=== PATIENT | female | born 1945 | race Caucasian/White ===

== ENCOUNTER 2017-03-22 08:25 | Day surgery (SDC) | payer MEDICARE ==
[2017-03-22] VITALS (9 sets, daily range): BP systolic 105–131; BP diastolic 48–78
[~2017-03-22 08:25] MED LIST: ALBU18HF2 INH; BUDE10.2 INH; CARV-50 PO; COU1T PO; FAMO20TA8 PO; FURO-150 PO; HYDR-3972 PO; MAGN400T6 PO; METF500T PO; POTA10CA44 PO; SPIR25TA3 PO
[2017-03-22] MEDS ORDERED: normal saline 1000ml 1,000 ML IV SCH (09:00)
[2017-03-22] MEDS ORDERED: albumin (human) 25% 100ml IV 100 ML IV ONE (09:00)
[2017-03-22] MEDS ORDERED: COU3T PO (09:20)
[2017-03-22 09:32] LABS: INR 1.6 INR; PROTHROMBIN TIME 16.7 SECONDS (9.0-12.0)
[2017-03-22] MEDS ORDERED: LIDOcaine 1% 30ml vial SQ STA ×2 (09:44→10:34)
== END 2017-03-22 11:40 | disposition home or self-care (01) ==
LOC: SSTAY O 08:25
PROVIDERS: ATTEND Radiology Diagnostic Radiology
DX: J90 Pleural effusion, not elsewhere classified (principal); R18.8 Other ascites; K72.10 Chronic hepatic failure without coma; E11.9 Type 2 diabetes mellitus without complications; I48.91 Unspecified atrial fibrillation; J44.9 Chronic obstructive pulmonary disease, unspecified; I11.0 Hypertensive heart disease with heart failure; I50.31 Acute diastolic (congestive) heart failure; Z87.891 Personal history of nicotine dependence; Z79.01 Long term (current) use of anticoagulants; Z88.0 Allergy status to penicillin; Z88.2 Allergy status to sulfonamides; Z90.49 Acquired absence of other specified parts of digestive tract; Z90.710 Acquired absence of both cervix and uterus; Z79.84 Long term (current) use of oral hypoglycemic drugs; Z85.41 Personal history of malignant neoplasm of cervix uteri
CPT/HCPCS: 32555; 36415; 49083; 71045; 85610; A6257; J3490; 88108; 88305; J7030

== ENCOUNTER 2017-04-19 08:48 | Day surgery (SDC) | payer MEDICARE ==
[2017-04-19] VITALS (9 sets, daily range): BP systolic 99–117; BP diastolic 52–79
[~2017-04-19 08:48] MED LIST changes: -COU1T PO; +COU3T PO; -HYDR-3972 PO; +HYDR-565 PO
[2017-04-19] MEDS ORDERED: normal saline 1000ml 1,000 ML IV PRN (09:10)
[2017-04-19] MEDS ORDERED: albumin (human) 25% 100 ML IV solution IV PRN (09:10)
== END 2017-04-19 11:35 | disposition home or self-care (01) ==
LOC: SSTAY O 08:48
PROVIDERS: ATTEND Radiology Diagnostic Radiology
DX: J90 Pleural effusion, not elsewhere classified (principal); R18.8 Other ascites; I48.91 Unspecified atrial fibrillation; I10 Essential (primary) hypertension; J44.9 Chronic obstructive pulmonary disease, unspecified; K74.60 Unspecified cirrhosis of liver; E11.9 Type 2 diabetes mellitus without complications; M19.90 Unspecified osteoarthritis, unspecified site; Z90.49 Acquired absence of other specified parts of digestive tract; Z90.710 Acquired absence of both cervix and uterus; Z88.0 Allergy status to penicillin; Z88.1 Allergy status to other antibiotic agents; Z79.84 Long term (current) use of oral hypoglycemic drugs; Z79.01 Long term (current) use of anticoagulants; Z87.891 Personal history of nicotine dependence; Z87.11 Personal history of peptic ulcer disease; Z85.41 Personal history of malignant neoplasm of cervix uteri; Z79.899 Other long term (current) drug therapy
CPT/HCPCS: 32555; 49083; 71045; A6257; J7030

== ENCOUNTER 2017-05-24 08:07 | Day surgery (SDC) | payer MEDICARE ==
[2017-05-24] MEDS ORDERED: LIDOcaine 1% 30ml preserv. free vial SQ STA (08:25)
[2017-05-24 08:33] VITALS: BP 111/76
[2017-05-24] MEDS ORDERED: normal saline 1000ml 1,000 ML IV PRN (08:55)
== END 2017-05-24 09:15 | disposition home or self-care (01) ==
LOC: SSTAY O 08:07
PROVIDERS: ATTEND Radiology Diagnostic Radiology
DX: J90 Pleural effusion, not elsewhere classified (principal); E11.9 Type 2 diabetes mellitus without complications; I10 Essential (primary) hypertension; I48.91 Unspecified atrial fibrillation; J44.9 Chronic obstructive pulmonary disease, unspecified; M19.90 Unspecified osteoarthritis, unspecified site; Z87.11 Personal history of peptic ulcer disease; Z79.01 Long term (current) use of anticoagulants; Z88.0 Allergy status to penicillin; Z88.2 Allergy status to sulfonamides; Z90.49 Acquired absence of other specified parts of digestive tract; Z90.710 Acquired absence of both cervix and uterus; Z79.891 Long term (current) use of opiate analgesic; Z88.8 Allergy status to other drugs, medicaments and biological substances; Z87.891 Personal history of nicotine dependence; Z85.41 Personal history of malignant neoplasm of cervix uteri; Z98.890 Other specified postprocedural states; Z79.899 Other long term (current) drug therapy
CPT/HCPCS: 32555; 71045; 76705; A6257; J3490; J7030

== ENCOUNTER 2017-06-05 08:24 | Day surgery (SDC) | payer MEDICARE ==
[~2017-06-05] VITALS: Ht 162.6 cm; Wt 55.4 kg
[2017-06-05] VITALS (12 sets, daily range): BP systolic 105–126; BP diastolic 64–81
[~2017-06-05 08:24] MED LIST changes: -ALBU18HF2 INH; -COU3T PO; -HYDR-565 PO; -METF500T PO
[2017-06-05] MEDS ORDERED: albumin (human) 25% 100ml IV 100 ML IV PRN (08:50)
[2017-06-05] MEDS ORDERED: LIDOcaine 1% 30ml preserv. free vial SQ STA (08:55)
== END 2017-06-05 11:00 | disposition home or self-care (01) ==
LOC: SSTAY O 08:24
PROVIDERS: ATTEND Radiology Vascular & Interventional Radiology
DX: J90 Pleural effusion, not elsewhere classified (principal); R18.8 Other ascites; K74.60 Unspecified cirrhosis of liver; E11.9 Type 2 diabetes mellitus without complications; I10 Essential (primary) hypertension; J44.9 Chronic obstructive pulmonary disease, unspecified; I48.91 Unspecified atrial fibrillation; Z88.0 Allergy status to penicillin; Z88.2 Allergy status to sulfonamides; Z90.49 Acquired absence of other specified parts of digestive tract; Z90.710 Acquired absence of both cervix and uterus; Z79.01 Long term (current) use of anticoagulants
CPT/HCPCS: 32555; 49083; 71045; A6257; J3490

== ENCOUNTER 2018-05-09 07:37 | Day surgery (SDC) | payer MEDICARE ==
[~2018-05-09 07:37] MED LIST changes: +LIDOcaine 1%/PF 5ML 10 MG/ML VIAL ONE; -SPIR25TA3 PO; +SPIR25TA5 PO
[2018-05-09] MEDS ORDERED: normal saline 1000ml 1,000 ML IV SCH (08:20)
[2018-05-09] MEDS ORDERED: ONDA4TAB12 PO (08:26)
[2018-05-09] MEDS ORDERED: HYDR-3686 PO (08:26)
[2018-05-09] MEDS ORDERED: PER10325T PO (08:26)
[2018-05-09 09:04] VITALS: BP 96/46
--- NOTE | 2018-05-09 10:20 | NUR ---
DR SINGH REMOVED ASPIRA CATHETER AT BEDSIDE. USING STERILE TECHNIQUE DR SINGH INJECTED 10ML OF 1% LIDOCAINE AND REMOVED CATHETER. PT O2 SATS REMAINED ABOVE 97% DURING AND AFTER PROCEDURE. I WAS INSTRUCTED TO MONITOR FOR 20 MINUTES POST CATH REMOVAL. SATS REMAINED ABOVE 97%. PT WAS DISCHARGED HOME WITH HER FRIEND. PT HAD ALL BELONGINGS. Addendum: 05/09/18 at 1640 by Noemi Vizcarra RN XEROFORM AND STERILE 2X2S PLACED AND COVERED BY A TAGADERM. PT INSTRUCTED TO LEAVE ON FOR 2 DAYS AND KEEP A BANDAID ON AFTER UNTIL IS COMPLETELY HEALED.
== END 2018-05-09 10:25 | disposition home or self-care (01) ==
LOC: SSTAY O 07:37
PROVIDERS: ATTEND Radiology Diagnostic Radiology
DX: T85.9XXA Unspecified complication of internal prosthetic device, implant and graft, initial encounter (principal); I48.91 Unspecified atrial fibrillation; I10 Essential (primary) hypertension; J44.9 Chronic obstructive pulmonary disease, unspecified; E11.9 Type 2 diabetes mellitus without complications; Y83.8 Other surgical procedures as the cause of abnormal reaction of the patient, or of later complication, without mention of misadventure at the time of the procedure; Z90.49 Acquired absence of other specified parts of digestive tract; Z90.710 Acquired absence of both cervix and uterus; Z88.0 Allergy status to penicillin; Z79.899 Other long term (current) drug therapy; Z88.2 Allergy status to sulfonamides
CPT/HCPCS: 32552; J2001; J7030

== ENCOUNTER 2018-09-19 13:45 | Emergency (ER) | payer MEDICARE ==
[~2018-09-19] VITALS: Ht 162.6 cm; Wt 47.7 kg
[~2018-09-19 13:45] MED LIST changes: -BUDE10.2 INH; +HYDR-3686 PO; -LIDOcaine 1%/PF 5ML 10 MG/ML VIAL ONE; +MAGN400T28 PO; -MAGN400T6 PO; +ONDA4TAB12 PO; +PER10325T PO
[2018-09-19] MEDS ORDERED: SYN0.088T PO (14:05)
[2018-09-19] MEDS ORDERED: POTA10TA10 PO (14:08)
[2018-09-19] MEDS ORDERED: CARV-50 PO (14:08)
[2018-09-19 15:11] LABS: BASOPHILS # (AUTO) 0.1 X10'3 (0-0.2); BASOPHILS % (AUTO) 0.7 % (0-1); EOSINOPHILS # (AUTO) 0.3 X10'3 (0-0.9); EOSINOPHILS % (AUTO) 2.6 % (0-6); HEMATOCRIT 40.2 % (35.0-45.0); HEMOGLOBIN 13.2 g/dl (12.0-16.0); LYMPHOCYTES # (AUTO) 0.7 X10'3 (1.1-4.8); LYMPHOCYTES % (AUTO) 6.5 % (21-51); MEAN CORPUSCULAR HGB CONC 32.9 g/dL (33.0-36.5); MEAN CORPUSCULAR VOLUME 84.9 FL (78-98); MEAN PLATELET VOLUME 6.8 FL (7.4-10.4); MONOCYTES # (AUTO) 1.2 X10'3 (0-0.9); MONOCYTES % (AUTO) 11.7 % (2-12); NEUTROPHILS # (AUTO) 7.9 X10'3 (1.8-7.7); NEUTROPHILS % (AUTO) 78.5 % (42-75); PLATELET COUNT 515 X10'3 (140-440); RED BLOOD COUNT 4.74 X10'6 (4.20-5.60); RED CELL DISTRIBUTION WIDTH 18.2 % (11.5-14.5); WHITE BLOOD COUNT 10.1 X10'3 (4.5-11.0)
[2018-09-19 15:22] LABS: PARTIAL THROMBOPLASTIN TIME 33 SECONDS (22-32)
[2018-09-19 15:23] LABS: ALANINE AMINOTRANSFERASE 9 U/L (12-78); ALBUMIN/GLOBULIN RATIO 0.8 (1.1-1.5); ALKALINE PHOSPHATASE 108 IU/L (46-116); ANION GAP 8 (8-16); ASPARTATE AMINO TRANSFERASE 17 U/L (10-37); BILIRUBIN,TOTAL 0.4 MG/DL (0.1-1.0); BLOOD UREA NITROGEN 24 MG/DL (7-18); BUN/CREATININE RATIO 12.6 (6.6-38.0); CHLORIDE 95 MMOL/L (99-107); GLUCOSE 108 MG/DL (70-104); LIPASE 89 U/L (73-393); POTASSIUM 4.8 MMOL/L (3.5-5.1); SODIUM 131 MMOL/L (135-145); TOTAL CARBON DIOXIDE 27.6 MMOL/L (24-32); eGFR 26 ML/MIN
[2018-09-19] MEDS ORDERED: normal saline 1000ML IV soln IVB ONE (15:30)
[2018-09-19 16:06] VITALS: BP 115/44
== END 2018-09-19 16:09 | disposition home or self-care (01) ==
LOC: ER 13:45
DX: R18.8 Other ascites (principal); E86.0 Dehydration; R16.0 Hepatomegaly, not elsewhere classified; I48.91 Unspecified atrial fibrillation; I10 Essential (primary) hypertension; J44.9 Chronic obstructive pulmonary disease, unspecified; E11.9 Type 2 diabetes mellitus without complications; Z90.49 Acquired absence of other specified parts of digestive tract; Z90.710 Acquired absence of both cervix and uterus; Z88.0 Allergy status to penicillin; Z88.2 Allergy status to sulfonamides; Z79.899 Other long term (current) drug therapy
CPT/HCPCS: 36415; 80053; 83690; 85025; 85610; 85730; 96360; 99284; J7030

== ENCOUNTER 2018-09-25 08:40 | Day surgery (SDC) | payer MEDICARE ==
[~2018-09-25] VITALS: Ht 157.5 cm; Wt 51.1 kg
[~2018-09-25 08:40] MED LIST changes: -POTA10CA44 PO; +POTA10TA10 PO; +SYN0.088T PO
[2018-09-25 09:06] VITALS: BP 99/72
[2018-09-25] MEDS ORDERED: albumin 25% 100mL bottle x 1 IV PRN (09:10)
[2018-09-25] MEDS ORDERED: normal saline 1000ml 1,000 ML IV PRN (09:10)
[2018-09-25 09:40] VITALS: BP 142/43
[2018-09-25 09:50] VITALS: BP 111/73
[2018-09-25 10:05] VITALS: BP 108/59
== END 2018-09-25 10:30 | disposition home or self-care (01) ==
LOC: SSTAY O 08:40
PROVIDERS: ATTEND Radiology Diagnostic Radiology
DX: J90 Pleural effusion, not elsewhere classified (principal); R18.8 Other ascites; I50.9 Heart failure, unspecified; Z88.0 Allergy status to penicillin; Z88.2 Allergy status to sulfonamides; Z88.8 Allergy status to other drugs, medicaments and biological substances
CPT/HCPCS: 32555; 71045; 76705; J7030

== ENCOUNTER 2018-10-02 10:02 | Emergency (ER) | payer MEDICARE ==
[~2018-10-02] VITALS: Ht 162.6 cm; Wt 45.5 kg
[2018-10-02 10:32] VITALS: BP 116/61
[2018-10-02 11:26] LABS: BASOPHILS # (AUTO) 0.1 X10'3 (0-0.2); BASOPHILS % (AUTO) 0.9 % (0-1); EOSINOPHILS # (AUTO) 0.2 X10'3 (0-0.9); EOSINOPHILS % (AUTO) 2.3 % (0-6); HEMATOCRIT 40.1 % (35.0-45.0); HEMOGLOBIN 13.7 g/dl (12.0-16.0); LYMPHOCYTES # (AUTO) 0.5 X10'3 (1.1-4.8); LYMPHOCYTES % (AUTO) 5.5 % (21-51); MEAN CORPUSCULAR HEMOGLOBIN 28.6 PG (27.0-31.0); MEAN CORPUSCULAR VOLUME 83.9 FL (78-98); MEAN PLATELET VOLUME 6.8 FL (7.4-10.4); MONOCYTES % (AUTO) 11.9 % (2-12); NEUTROPHILS # (AUTO) 6.8 X10'3 (1.8-7.7); NEUTROPHILS % (AUTO) 79.4 % (42-75); PLATELET COUNT 466 X10'3 (140-440); RED BLOOD COUNT 4.78 X10'6 (4.20-5.60); RED CELL DISTRIBUTION WIDTH 17.5 % (11.5-14.5); WHITE BLOOD COUNT 8.6 X10'3 (4.5-11.0)
[2018-10-02 11:36] LABS: ALANINE AMINOTRANSFERASE 7 U/L (12-78); ALBUMIN 2.6 G/DL (3.4-5.0); ALBUMIN/GLOBULIN RATIO 0.7 (1.1-1.5); ALKALINE PHOSPHATASE 76 IU/L (46-116); ANION GAP 9 (8-16); ASPARTATE AMINO TRANSFERASE 21 U/L (10-37); BILIRUBIN,TOTAL 0.6 MG/DL (0.1-1.0); BLOOD UREA NITROGEN 25 MG/DL (7-18); BUN/CREATININE RATIO 12.8 (6.6-38.0); CHLORIDE 98 MMOL/L (99-107); CREATININE 1.96 MG/DL (0.40-0.90); GLUCOSE 94 MG/DL (70-104); LIPASE 98 U/L (73-393); POTASSIUM 4.5 MMOL/L (3.5-5.1); SODIUM 133 MMOL/L (135-145); TOTAL CARBON DIOXIDE 26.2 MMOL/L (24-32); TOTAL PROTEIN 6.3 G/DL (6.4-8.2); eGFR 25 ML/MIN
[2018-10-02 11:44] LABS: COLOR,URINE YELLOW (Yellow); GLUCOSE, URINE NEGATIVE (Neg); KETONES,URINE NEGATIVE (Neg); LEUKOCYTE ESTERASE ,URINE TRACE (Neg); NITRITES, URINE NEGATIVE (Neg); OCCULT BLOOD,URINE NEGATIVE (Neg); PH,URINE 5.5 (4.8-8.0); PROTEIN,URINE NEGATIVE (Neg); UROBILINOGEN,URINE 0.2 E.U/dL (0.2-1.0)
[2018-10-02] MEDS ORDERED: ondansetron 4mg rapidly disintigrating tab PO ONE (11:45)
[2018-10-02] MEDS ORDERED: oxyCODONE SR 10mg (sust. release) tab PO ONE (11:45)
[2018-10-02 11:48] LABS: UA COLLECTION TYPE CLN CATCH MIDSTREAM
[2018-10-02 11:49] LABS: CLARITY,URINE SLIGHTLY CLOUDY (Clear)
[2018-10-02] MEDS ORDERED: oxyCODONE IR 5mg (immed. release) tablet PO ONE (11:50)
[2018-10-02 12:03] LABS: BACTERIA,URINE FEW /HPF (Neg); RBC,URINE 0-2 /HPF (0-2); SQUAMOUS EPITHELIAL CELL,UR FEW /LPF (FEW); WBC,URINE 0-4 /HPF (0-4)
[2018-10-02 12:17] LABS: TROPONIN I < 0.04 NG/ML (0.0-0.05)
[2018-10-02] MEDS ORDERED: HYDR-3965 PO (14:33)
== END 2018-10-02 15:05 | disposition home or self-care (01) ==
LOC: ER 10:03
DX: R18.8 Other ascites (principal); I48.91 Unspecified atrial fibrillation; I10 Essential (primary) hypertension; J44.9 Chronic obstructive pulmonary disease, unspecified; E11.9 Type 2 diabetes mellitus without complications; F17.200 Nicotine dependence, unspecified, uncomplicated; Z90.49 Acquired absence of other specified parts of digestive tract; Z90.710 Acquired absence of both cervix and uterus; Z88.0 Allergy status to penicillin; Z88.5 Allergy status to narcotic agent; Z79.899 Other long term (current) drug therapy
CPT/HCPCS: 36415; 71045; 74176; 80053; 81001; 83690; 84484; 85025; 85610; 87088; 93005; 99284; J2405

== ENCOUNTER 2018-10-03 09:09 | Day surgery (SDC) | payer MEDICARE ==
[2018-10-03] VITALS (7 sets, daily range): BP systolic 94–120; BP diastolic 44–69
[~2018-10-03 09:09] MED LIST changes: +HYDR-3965 PO
[2018-10-03] MEDS ORDERED: normal saline 1000ml 1,000 ML IV PRN (09:35)
[2018-10-03] MEDS ORDERED: albumin 25% 100mL bottle x 1 IV PRN (09:35)
== END 2018-10-03 11:30 | disposition home or self-care (01) ==
LOC: SSTAY O 09:09
PROVIDERS: ATTEND Radiology Vascular & Interventional Radiology
DX: R18.8 Other ascites (principal); J90 Pleural effusion, not elsewhere classified; I11.0 Hypertensive heart disease with heart failure; I50.9 Heart failure, unspecified; J44.9 Chronic obstructive pulmonary disease, unspecified; I48.91 Unspecified atrial fibrillation; E11.9 Type 2 diabetes mellitus without complications; Z79.899 Other long term (current) drug therapy
CPT/HCPCS: 32555; 49083; 71045; C1729; J7030; 88108; 88305

== ENCOUNTER 2018-10-21 16:07 | Inpatient (IN) | payer MEDICARE ==
[~2018-10-21] VITALS: Ht 162.6 cm; Wt 45.0 kg
[2018-10-21 16:40] LABS: BASOPHILS # (AUTO) 0.1 X10'3 (0-0.2); BASOPHILS % (AUTO) 1.2 % (0-1); EOSINOPHILS # (AUTO) 0.2 X10'3 (0-0.9); EOSINOPHILS % (AUTO) 1.6 % (0-6); HEMATOCRIT 43.6 % (35.0-45.0); HEMOGLOBIN 14.1 g/dl (12.0-16.0); LYMPHOCYTES # (AUTO) 0.5 X10'3 (1.1-4.8); LYMPHOCYTES % (AUTO) 5.8 % (21-51); MEAN CORPUSCULAR HEMOGLOBIN 27.9 PG (27.0-31.0); MEAN CORPUSCULAR HGB CONC 32.3 g/dL (33.0-36.5); MEAN CORPUSCULAR VOLUME 86.2 FL (78-98); MEAN PLATELET VOLUME 6.7 FL (7.4-10.4); MONOCYTES % (AUTO) 11.2 % (2-12); NEUTROPHILS # (AUTO) 7.4 X10'3 (1.8-7.7); NEUTROPHILS % (AUTO) 80.2 % (42-75); PLATELET COUNT 474 X10'3 (140-440); RED BLOOD COUNT 5.06 X10'6 (4.20-5.60); RED CELL DISTRIBUTION WIDTH 16.9 % (11.5-14.5); WHITE BLOOD COUNT 9.3 X10'3 (4.5-11.0)
[2018-10-21 16:53] LABS: PARTIAL THROMBOPLASTIN TIME 27 SECONDS (22-32)
[2018-10-21] MEDS ORDERED: morphine 4 MG/ML inj SYRINge IV ONE (16:55)
[2018-10-21] MEDS ORDERED: furosemide 10 MG/1 ML 10ml inj IV ONE (16:55)
[2018-10-21 17:01] LABS: ALANINE AMINOTRANSFERASE 7 U/L (12-78); ALBUMIN 2.7 G/DL (3.4-5.0); ALBUMIN/GLOBULIN RATIO 0.6 (1.1-1.5); ALKALINE PHOSPHATASE 76 IU/L (46-116); ANION GAP 9 (8-16); ASPARTATE AMINO TRANSFERASE 27 U/L (10-37); BILIRUBIN,TOTAL 0.5 MG/DL (0.1-1.0); BLOOD UREA NITROGEN 70 MG/DL (7-18); BUN/CREATININE RATIO 22.9 (6.6-38.0); CALCIUM 11.7 MG/DL (8.5-10.1); CHLORIDE 95 MMOL/L (99-107); CREATININE 3.06 MG/DL (0.40-0.90); GLUCOSE 84 MG/DL (70-104); POTASSIUM 5.5 MMOL/L (3.5-5.1); SODIUM 131 MMOL/L (135-145); TOTAL CARBON DIOXIDE 27.5 MMOL/L (24-32); TOTAL PROTEIN 6.9 G/DL (6.4-8.2); eGFR 15 ML/MIN
[2018-10-21] MEDS ORDERED: CARV6.253 PO (17:39)
[2018-10-21] MEDS ORDERED: LEVO25TA7 PO (17:39)
[2018-10-21] MEDS ORDERED: ondansetron/PF 4mg/2ml inj IV PRN (17:45)
[2018-10-21] MEDS ORDERED: mag hydrox/Alum hydrox/simeth 30ml oral suspension PO PRN (17:45)
[2018-10-21] MEDS ORDERED: acetaminophen 325mg tablet PO PRN (17:45)
[2018-10-21] MEDS ORDERED: bisacodyl 10mg suppository rectal RC PRN (17:45)
[2018-10-21] MEDS ORDERED: morphine 2 MG/ML inj. syringe IV PRN (17:45)
[2018-10-21] MEDS ORDERED: diphenhydrAMINE 25mg capsule PO PRN (17:45)
[2018-10-21] MEDS ORDERED: ipratropium/albuterol 3ml nebule NEB PRN (17:45)
[2018-10-21] MEDS ORDERED: magnesium hydroxide 30ml (MOM) UD suspension PO PRN (17:45)
[2018-10-21] MEDS ORDERED: hyoscyamine 0.125mg TAB.SUBL SL PRN (17:55)
[2018-10-21] MEDS ORDERED: dronabinol 2.5mg capsule PO PRN (17:55)
[2018-10-21] MEDS ORDERED: LORazepam 2 mg/ml vial IV PRN (17:55)
[2018-10-21] MEDS ORDERED: LORazepam 0.5 MG tablet PO PRN (17:55)
[2018-10-21] MEDS ORDERED: morphine oral 20mg/ml (conc. morphine) 1ml oral syringe PO PRN (17:55)
[2018-10-21] MEDS ORDERED: hydrOXYzine 25 MG tablet PO PRN (18:15)
[2018-10-21] MEDS: docusate sod 100mg capsule PO SCH (19:21)
[2018-10-21] MEDS: furosemide 40mg tablet PO SCH (19:21)
[2018-10-21] MEDS: oxyCODONE/APAP 10/325mg tablet PO PRN (20:08)
[2018-10-21 20:30] VITALS: BP 113/46
[2018-10-22] MEDS: oxyCODONE/APAP 10/325mg tablet PO PRN ×3 (04:04→19:38)
--- NOTE | 2018-10-22 06:14 | NUR ---
received report from [facility]
--- NOTE | 2018-10-22 06:15 | NUR ---
Gave report to Es DRAPER.
[2018-10-22] MEDS ORDERED: morphine 10mg/0.5ml (conc. morphine) oral syringe PO PRN (08:06)
[2018-10-22] MEDS: famotidine 20mg tablet PO SCH (08:12)
[2018-10-22] MEDS: furosemide 40mg tablet PO SCH ×2 (08:12→19:48)
[2018-10-22] MEDS: docusate sod 100mg capsule PO SCH ×2 (08:12→19:37)
--- NOTE | 2018-10-22 09:59 | NUR ---
Pt has been made DNR w/ comfort care. [facility] 10/16. To go home on hospice per MD note. Will continue to follow per protocol. Rec: 1. routine bowel care Addendum: 10/22/18 at [address] Amended: Links added.
[2018-10-22 10:00] VITALS: BP 115/60
[2018-10-22 11:50] VITALS: BP 121/69
[2018-10-22 12:20] VITALS: BP 126/55
--- NOTE | 2018-10-22 18:00 | NUR ---
Granddaughter Maria Isabel would like to be notified of any changes in patients condition. Phone number is
--- NOTE | 2018-10-22 18:05 | NUR ---
Received report from sE DRAPER. Assumed care of patient
--- NOTE | 2018-10-22 18:14 | NUR ---
GAVE REPORT TO BONNY DAVALOS
[2018-10-22] MEDS: morphine 10mg/0.5ml (conc. morphine) oral syringe PO PRN (21:10)
[2018-10-22] MEDS: morphine 2 MG/ML inj. syringe IV PRN (21:52)
[2018-10-22 22:00] VITALS: BP 82/38
[2018-10-23] MEDS: oxyCODONE/APAP 10/325mg tablet PO PRN ×3 (05:14→20:52)
--- NOTE | 2018-10-23 06:00 | NUR ---
Gave report to Es DRAPER.
--- NOTE | 2018-10-23 06:12 | NUR ---
received report from [facility]
[2018-10-23] MEDS: docusate sod 100mg capsule PO SCH ×2 (07:21→19:12)
[2018-10-23] MEDS: famotidine 20mg tablet PO SCH (07:21)
[2018-10-23] MEDS: furosemide 40mg tablet PO SCH ×2 (07:22→19:12)
[2018-10-23] MEDS: morphine 10mg/0.5ml (conc. morphine) oral syringe PO PRN ×4 (07:23→19:14)
[2018-10-23 10:00] VITALS: BP 82/47
[2018-10-23 15:00] VITALS: BP 145/82
[2018-10-23 15:05] VITALS: BP 94/53
--- NOTE | 2018-10-23 15:35 | NUR ---
pt is just arrived back on floor from procedure
[2018-10-23 15:36] VITALS: BP 96/59
--- NOTE | 2018-10-23 18:06 | NUR ---
gave report to bonita stahl rn
[2018-10-23] MEDS: morphine 2 MG/ML inj. syringe IV PRN (22:19)
--- NOTE | 2018-10-24 00:49 | NUR ---
reviewed and edited nursing assessment from RADHA. Addendum: 10/24/18 at 0059 by Cara Mahoney RN [facility]
[2018-10-24] MEDS: morphine 2 MG/ML inj. syringe IV PRN (03:13)
[2018-10-24] MEDS: morphine 10mg/0.5ml (conc. morphine) oral syringe PO PRN ×3 (04:17→08:59)
--- NOTE | 2018-10-24 06:15 | NUR ---
I have received patient report from Cara Edmond and Zoe Contreras
--- NOTE | 2018-10-24 06:21 | NUR ---
Problems reprioritized. Patient report given, questions answered & plan of care reviewed with Mary DRAPER.
[2018-10-24] MEDS: docusate sod 100mg capsule PO SCH (07:43)
[2018-10-24] MEDS: famotidine 20mg tablet PO SCH (07:44)
[2018-10-24] MEDS: furosemide 40mg tablet PO SCH (07:44)
[2018-10-24] MEDS: oxyCODONE/APAP 10/325mg tablet PO PRN (09:01)
[2018-10-24 10:00] VITALS: BP 125/72
--- NOTE | 2018-10-24 11:05 | NUR ---
Patient discharged with her friend Merari at this time. Information packets and chest tube drainage bags provided for patient upon discharge. Chest tube appeared intact. Patient taken out in wheel chair with 02 and had ride Mer[place] caregiver waiting for her.
== END 2018-10-24 11:30 | disposition hospice, inpatient (51) | DRG 673 ==
LOC: ER 16:07 → ORTHO 4S 19:48 → CMPBEDREQ 19:50
PROVIDERS: ADMIT Family Medicine; ATTEND Family Medicine
PROC: 0W9B3ZZ Drainage of Left Pleural Cavity, Percutaneous Approach (ICD-10-PCS; principal; 2018-10-22)
PROC: 0JH63XZ Insertion of Tunneled Vascular Access Device into Chest Subcutaneous Tissue and Fascia, Percutaneous Approach (ICD-10-PCS; 2018-10-23)
DX: N17.9 Acute kidney failure, unspecified (principal); E43 Unspecified severe protein-calorie malnutrition; J96.20 Acute and chronic respiratory failure, unspecified whether with hypoxia or hypercapnia; E87.1 Hypo-osmolality and hyponatremia; J91.0 Malignant pleural effusion; Z68.1 Body mass index [BMI] 19.9 or less, adult; C77.2 Secondary and unspecified malignant neoplasm of intra-abdominal lymph nodes; I13.0 Hypertensive heart and chronic kidney disease with heart failure and stage 1 through stage 4 chronic kidney disease, or unspecified chronic kidney disease; I50.20 Unspecified systolic (congestive) heart failure; R18.8 Other ascites; E87.5 Hyperkalemia; R62.7 Adult failure to thrive; E11.22 Type 2 diabetes mellitus with diabetic chronic kidney disease; N18.9 Chronic kidney disease, unspecified; M54.9 Dorsalgia, unspecified; F17.210 Nicotine dependence, cigarettes, uncomplicated; G89.29 Other chronic pain; F41.9 Anxiety disorder, unspecified; I48.2 Chronic atrial fibrillation; J44.9 Chronic obstructive pulmonary disease, unspecified; K74.60 Unspecified cirrhosis of liver; Z51.5 Encounter for palliative care; Z90.710 Acquired absence of both cervix and uterus; Z99.81 Dependence on supplemental oxygen; Z88.0 Allergy status to penicillin; Z88.2 Allergy status to sulfonamides; Z88.8 Allergy status to other drugs, medicaments and biological substances; Z90.49 Acquired absence of other specified parts of digestive tract; Z79.899 Other long term (current) drug therapy
CPT/HCPCS: 32550; 32555; 36415; 71045; 71046; 75989; 80053; 83880; 84484; 85025; 85610; 85730; 87081; 93005; 94760; 96374; 96375; 99285; G0378; J1940; J2270; Q0167